=== PATIENT | female | born 1940 | race Caucasian/White ===

== ENCOUNTER → 2019-04-29 | Emergency (ER) | payer OTHER ==
[~2019-04-29] VITALS: Ht 157.5 cm; Wt 50.8 kg
[~2019-04-29] MED LIST: ASPIR 8181 MG; ATENOLOL25 MG; ELIQUIS2.5 MG; OMEGA-31000 MG; SYNTHROID75 MCG
== END | disposition left against medical advice (07) ==
LOC: ER 09:36
DX: S50.12XA Contusion of left forearm, initial encounter (principal); S49.82XA Other specified injuries of left shoulder and upper arm, initial encounter; R55 Syncope and collapse; W18.09XA Striking against other object with subsequent fall, initial encounter; Y93.89 Activity, other specified; Y92.89 Other specified places as the place of occurrence of the external cause; Y99.8 Other external cause status